=== PATIENT | male | born 1995 | race Caucasian/White ===

== ENCOUNTER 2023-03-30 10:48 | Outpatient (OUT) | payer OTHER, SELFPAY ==
[2023-03-30 11:14] LABS: Basophils Percent Auto 0.8 % (0.2-2.0); Eosinophils Absolute Auto 0.2 10^3/uL (0.0-0.7); Eosinophils Percent Auto 4.6 % (0.9-7.0); Hematocrit 46.2 % (42.0-54.0); Hemoglobin 15.6 g/dL (14.0-18.0); Immature Granulocytes Abs Auto 0.03 10^3/uL (0.00-0.03); Immature Granulocytes Pct Auto 0.6 % (0.0-0.5); Lymphocytes Absolute Auto 0.8 10^3/uL (1.2-3.8); Lymphocytes Percent Auto 15.7 % (20.5-60.0); Mean Corpuscular HGB Conc 33.8 g/dL (29.9-35.2); Mean Corpuscular Hemoglobin 32.3 pg (25.9-34.0); Mean Corpuscular Volume 95.7 fL (80.0-94.0); Mean Platelet Volume 9.2 fL (9.5-13.5); Monocytes Absolute Auto 0.3 10^3/uL (0.3-0.8); Monocytes Percent Auto 5.4 % (1.7-12.0); Neutrophils Absolute Auto 3.8 10^3/uL (1.4-6.5); Neutrophils Percent Auto 72.9 % (43.0-75.0); Platelet Count 229 10^3/uL (150-450); Red Blood Count 4.83 10^6/uL (4.70-6.10); Red Cell Distribution Width 11.8 % (11.0-15.0); White Blood Count 5.2 10^3/uL (4.0-11.0)
[2023-03-30 12:36] LABS: Alanine Aminotransferase 72 U/L (16-63); Albumin Globulin Ratio 1.3; Albumin Level 4.3 g/dL (3.4-5.0); Alkaline Phosphatase 70 U/L (46-116); Anion Gap 12.5; Aspartate Amino Transferase 36 U/L (15-37); BUN Creatinine Ratio 19.3; Bilirubin Total 0.9 mg/dL (0.2-1.0); Carbon Dioxide 29.7 mmol/L (21.0-32.0); Chloride 102 mmol/L (98-107); Cholesterol 229 mg/dL (<=200); Estimated GFR (African America >60 (>=60); Estimated GFR (Non-African Ame >60 (>=60); Globulin 3.3 g/dL; Glucose 108 mg/dL (74-106); HDL Cholesterol 77 mg/dL (40-60); Potassium 4.2 mmol/L (3.5-5.1); Sodium 140 mmol/L (136-145); Total Protein 7.6 g/dL (6.4-8.2); Triglycerides 85 mg/dL (<=150)
[2023-03-31 06:09] LABS: HBsAg Screen Negative (Negative); HCV Antibody Non Reactive (Non Reactive)
[2023-04-01 07:08] LABS: QuantiFERON-TB Gold Plus Negative (Negative)
== END 2023-03-30 10:49 | disposition home or self-care (01) ==
LOC: LAB 10:54
PROVIDERS: PCP Nurse Practitioner Family; Visit Provider Nurse Practitioner
DX: L30.8 Other specified dermatitis (principal); F17.200 Nicotine dependence, unspecified, uncomplicated; Z79.899 Other long term (current) drug therapy
CPT/HCPCS: 36415; 80053; 80061; 85025; 86480; 86803; 87340

== ENCOUNTER 2023-11-07 06:41 | Emergency (ER) | payer OTHER, SELFPAY ==
[2023-11-07 06:44] VITALS: BP 172/100; PULSE 85; TEMP 36.4; O2SAT 99; BMI 29.0
--- OUTSIDE RECORDS SUMMARY | 2023-11-07 06:48 | XMS_ITS ---
Patient Summarization (C-CDA 2.1 CCD) Created on: November 07, 2023 PORTIA MULLINS : 1995 Sex: Male Author Organization Sample organization Care Team Providers Care Slot Operations Director Name Role Phone Brenna Anderson Unavailable Lyn Larsen Unavailable Encounters Encounter Date Encounter Type Care Provider Facility Start: 02-16-2022 End: 02-16-2022 ambulatory Lyn Larsen Other [facility] Other Start: 02-16-2022 Office outpatient vi sit 15 minutes Lyn Larsen [facility] Start: 03-25-2021 End: 03-25-2021 ambulatory Brenna Anderson Other [facility] Other Start: 03-25-2021 Office outpatient vi sit 5 minutes Brenna Anderson [facility] Immunizations Immunization Date Immunization Notes Care Provider Rowena rubin 03-21-2012 influenza, seasonal, injectable, preservative free Brenna Anderson Other [facility] Other Medications Current Medications Medication Drug Class(es) Dates Sig (Normalized) Sig (Original) cetirizine hydrochloride 10 mg oral tablet (1 source) Histamine-1 Receptor Antagonist Start: 2 take 1 tablet by mouth every twelve hours Cetirizine HCl 10 MG 1 tablet Orally Twice a day for 14 days Jan, Active methylPREDNISolone 4 mg oral tablet (1 source) Corticosteroid Start: 2 methylPREDNISolone 4 MG as directed Orally for daily dose take half with breakfast, half with dinner for 6 days Jan, Active Completed/Discontinued Medications Medication Drug Class(es) Dates Sig (Normalized) Sig (Original) sertraline 100 mg oral tablet (1 source) Serotonin Reuptake Inhibitor Start: 08-31-2012 take 1 tablet by mouth every twenty-four hours Zoloft 100 MG 1 tablet Orally Once a day for 30 August, Not-Taking Payers Date Payer Category Payer Policy ID Unknown [id number] Problems Active Problems Problem Classification Problem Date Documented Da te Episodic/Chronic Lymphadenitis (2 sources) Anterior cervical lymphadenopathy; Translations: [Anterior cervical lymphadenopathy] Episodic Malaise and fatigue (2 sources) Fatigue; Translations: [Fatigue] Episodic Mood disorders (4 sources) Mood disorder; Translations: [Mood disorder] Chronic Other circulatory disease (1 source) Elevated blood-pressure reading, without diagnosis of hypertension Episodic Other upper respiratory infections (2 sources) Acute pharyngitis; Translations: [Sore throat (viral) NOS] Episodic Otitis media and related conditions (1 source) Other acute nonsuppurative otitis media, bilateral Episodic Past or Other Problems Problem Classification Problem Date Documented Da te Episodic/Chronic Immunizations and screening for infectious disease (1 source) Encounter for screening for other viral diseases Onset: 03-25-2021 Resolved: 03-25-2021 Episodic Results Test Name Value Interpretation Reference Range [facility] Semen Analysis, [facility] 07-06-2021 Abnormal Sperm Morphology 38 % Normal [facility] Comment on above: Result Comment: WHO Standards used to classify morphology. Performed By: #### S EMCOMP #### [address] Abstinence Period, Semen [facility]HRS [facility] Comment on above: Performed By: #### S EMCOMP #### [facility] [address] [place] [address] [place] Container Type, Semen Cup, Sterile [facility] Comment on above: Performed By: #### S EMCOMP #### [facility] [address] [place] [address] [place] Immature Sperm 3 % [facility] Comment on above: Performed By: #### S EMCOMP #### [place] [address] [place] Immotile Sperm 34 % [facility] Comment on above: Performed By: #### S EMCOMP #### [address] Non-Progression Sperm Motili 24 % Normal [facility] Comment on above: Performed By: #### S EMCOMP #### [address] Normal Sperm Morphology 59 % Normal >/=[address] [facility] Comment on above: Result Comment: WHO Standards used to classify morphology. Performed By: #### S EMCOMP #### [address] Rapid Progression Sperm Motili 32 % Normal [facility] Comment on above: Result Comment: Refe rence: Total of Rapid and Slow Progression is >/= 50% or Rapid Progression only is >/= 25% Decreased motility percentage may be the result of non-viable or non-motile sperm. Performed By: #### S EMCOMP #### [address] Round Cell Concent, Semen 0 10*6/mL Normal <[address] [facility] Comment on above: Result Comment: (Pot entially WBC's) Performed By: #### S EMCOMP #### [address] Semen Collection Method Masturbation Normal [facility] Comment on above: Performed By: #### S EMCOMP #### [address] Semen Liquefaction Liquefied @ 30 min. Normal [facility] Comment on above: Result Comment: PERF ORMED BY: [place] [address] PATHOLOGIST ACID BLOWER AYSHA BREEN M.D. Performed By: #### S EMCOMP #### [address] Semen Viscosity Normal Normal Normal [facility] Comment on above: Performed By: #### S EMCOMP #### [address] Semen Volume 3.0 mL Normal 2.0-5.0 [facility] Comment on above: Performed By: #### S EMCOMP #### [facility] [address] [place] [address] [place] Slow Progression Sperm Motili 10 % Normal [facility] Comment on above: Performed By: #### S EMCOMP #### [facility] [address] [place] [address] [place] Sperm Concentration 15 10*6/mL Low >=20 [facility] Comment on above: Performed By: #### S EMCOMP #### [facility] [address] [place] [id number] [facility] COVID Quick Testingon 2020 Result Negative [facility] Other Social History Date Type Detail Facility Unknown if ever smoked [facility] Other Sex Assigned At Sex Assigned At Bir th [facility] Other Vital Signs Date Time Vital Sign Value Performing Clinician Facility 02-16-2022 10:10-0400 Body height 187.96 cm Lyn Larsen Other [facility] Other 02-16-2022 10:10-0400 Body mass index (BMI) [Ratio] 28.89 kg/m2 Lyn Larsen Other [facility] Other 02-16-2022 10:10-0400 Body temperature 98.3 [degF] Lyn Larsen Other [facility] Other 02-16-2022 10:10-0400 Body weight 102.06 kg Lyn Larsen Other [facility] Other 02-16-2022 10:10-0400 Diastolic blood pressure 86 mm[Hg] Lyn Larsen Other [facility] Other 02-16-2022 10:10-0400 Respiratory rate 18 /min Lyn Larsen Other [facility] Other 02-16-2022 10:10-0400 SaO2% (BldA) [Mass fraction] 99 % Lyn Larsen Other [facility] Other 02-16-2022 10:10-0400 Systolic blood pressure 149 mm[Hg] Lyn Larsen Other [facility] Other Evaluation note 02-16-2022 Note Date & Type Note Facility 02-16-2022 Evaluation note Encounter Date Diagnosis Assessment Notes Jan, Acute effusion of both middle ears (ICD-10 - H65.193) Discussed diagnosis with patient. Advised that his physical exam is consistent with effusion. Will send in rx of Medrol dose pack since patient reports no tolerance to Flonase and Cetirizine to use as directed. Advised patient to finish entire course, take with food and plenty of water. If symptoms do not improve with treatment, follow up with PCP for workup. Immediate evaluation in ER for signs/symptoms as discussed. Patient verbalzies understanding and is agreeable with treatment plan Jan, Elevated blood pressure reading (ICD-10 - R03.0) Advised patient that he needs to follow up with PCP for elevated BP today as well, which can also cause symptoms of dizziness. Immediate evaluation in ER with signs/symptoms as discussed. Patient verbalizes understanding and is agreeable with treatment plan [facility] Other Evaluation note 03-25-2021 Note Date & Type Note Facility 03-25-2021 Evaluation note Encounter Date Diagnosis Assessment Notes Mar, Encounter for screening for other viral diseases (ICD-10 - Z11.59) Mar, Other Additional time spent conducting pre-visit phone call, screening for symptoms, instructions on social distancing, application and removal of PPE, and cleaning of examination room, equipment and supplies was preformed. Patient education given for testing methodology and results. Patient care instructions given in writting by [facility] document. [facility] Other History general Narrative - Reported Note Date & Type Note Facility History general Narrative - Reported Type Medical History ADHD from 1st grade until 10th g [employer] [facility] Other Summary Purpose Family History No Family History Records Found Advance Directives No Advanced Directives Records Found Additional Source Comments (unrecognized sect ion and content) No Status Records Found INFORMATION SOURCE (unrecogn ized section and content) DATE CREATED AUTHOR 07/20/[address] [facility] REASON FOR VISIT (unrecogniz ed section and content) #19 WITH #17 ORESTES ESTRELLA C, [employer] FOR RECORDS PERTAINING TO PATIENTS WHO ARE OR HAVE BEEN ENROLLED IN A CHEMICAL DEPENDENCY/SUBSTANCEABUSE PROGRAM, SOME INFORMATION MAY BE OMITTED. This clinical summary was aggregated from multiple sources. Caution should be exercised in using it in the provision of clinical care. This summary normalizes information from multiple sources, and as a consequence, information in this document may materially change the coding, format and clinical context of patient data. In addition, data may be omitted in some cases. CLINICAL DECISIONS SHOULD BE BASED ON THE PRIMARY CLINICAL RECORDS. [employer] provides no warranty or guarantee of the accuracy or completeness of information in this document.
--- NOTE | 2023-11-07 07:02 | XR_ITS ---
The [address] [address] Patient Name: PORTIA MULLINS MRN: [id number] date: 1995 Sex: M Assigned Patient Location: ER Current Patient Location: ER Accession/Order Number: [id number] Exam Date: 11/07/2023 07:10 Report Date: 11/07/2023 07:24 At the request of: SARA DEAN Procedure: XR hand RT min 3V PROCEDURE: XR hand RT min 3V COMPARISON: None. HISTORY: punch injury to 4th/5th FINDINGS: BONES:No acute fracture or dislocation. Contour deformity of the fifth metacarpal consistent with a remote healed fracture SOFT TISSUES:Negative. No visible soft tissue swelling. EFFUSION:None visible. OTHER: Negative. XR/XR hand RT min 3V IMPRESSION: No acute fracture Electronically authenticated by: HIMANSHU FUCHS Date: 11/07/2023 07:24
--- NOTE | 2023-11-07 07:19 | ED_ITS ---
HPI HPI - General Adult General Chief complaint: Extremity Injury, Upper Stated complaint: RT INDEX FINGER INJURY Time Seen by Provider: 11/07/23 06:59 Source: patient Mode of arrival: walk-in Limitations: no limitations History of Present Illness HPI narrative: 27-year-old male to the emergency department with a chief complaint of laceration to his index finger. Patient reports that he was doing some work on a ariel truck bed and scratched his finger. He reports there was some bleeding. It occurred yesterday afternoon. He reports that has not been bleeding since. His tetanus is up-to-date. He reports he is able to fully flex and extend the digit. Patient reports that 3 days ago he was punching a heavy bag and believes that he broke his right hand as well. He has tenderness over the fourth and fifth metacarpals. Related Data Home Medications ?Medication ?Instructions ?Recorded ?Confirmed bupropion HCl 300 mg 24 hr tablet, mg PO 11/07/23 extended release Previous Rx's ?Medication ?Instructions ?Recorded amoxicillin 875 mg-potassium 1 tab PO Q12H #14 tabs 11/07/23 clavulanate 125 mg tablet Allergies Allergy/AdvReac Type Severity Reaction Status Date / Time No Known Drug Allergies Allergy Verified 11/07/23 06:49 Opioid HPI Opioid Management Most Recent Opioid Data: Last Pain Scale 4 11/07/23 07:02 Review of Systems ROS Status of ROS 10 or more systems reviewed and unremark able except as noted in history and below Exam Narrative Exam Narrative: VITALS: I have reviewed the triage vital signs. GENERAL: Well developed, well appearing adult in no acute distress. NEURO: Alert and oriented. Moves all extremities. Face is symmetric and expressive. EYES: PERRL. No scleral icterus or conjunctival injection. No discharge. HENT: Normocephalic, atraumatic. Hearing is grossly intact. Nares grossly patent and without discharge. Mucous membranes moist. Right hand: There is tenderness and swelling about the fourth and fifth distal metacarpals. There is a superficial laceration about the pad of the index finger without any active bleeding. No gaping, it is already beginning to seal up. Superficial and deep flexor tendon function is intact by isolation testing of each joint. Extensor tendon mechanism is intact. SKIN: Warm and dry. Normal turgor. No rash or lesions appreciated. PSYCH: Mood, affect, and interaction is appropriate to the setting. Constitutional Vital Signs, click to edit/add: Last Vital Signs Temp 97.5 F L 11/07/23 06:44 Pulse 86 11/07/23 07:53 Resp 18 11/07/23 07:53 BP 172/100 H 11/07/23 07:53 Pulse Ox 98 11/07/23 07:53 O2 Del Method Room Air 11/07/23 06:44 Course Vital Signs Vital signs: Vital Signs Temperature 97.5 F L 11/07/23 06:44 Pulse Rate 85 11/07/23 06:44 Respiratory Rate 18 11/07/23 06:44 Blood Pressure 172/100 H 11/07/23 06:44 Pulse Oximetry 99 11/07/23 06:44 Oxygen Delivery Method Room Air 11/07/23 06:44 Temperature 97.5 F L 11/07/23 06:44 Pulse Rate 86 11/07/23 07:53 Respiratory Rate 18 11/07/23 07:53 Blood Pressure 172/100 H 11/07/23 07:53 Pulse Oximetry 98 11/07/23 07:53 Oxygen Delivery Method Room Air 11/07/23 06:44 Medical Decision Making MDM Narrative Medical decision making narrative: 27-year-old male with 2 complaints of the right hand. The first is a boxing injury with pain over the fourth and fifth distal metacarpals that occurred 3 days ago. The second is a delayed presentation for a laceration of the index finger. His tetanus is up-to-date. X-ray to be obtained. Patient agrees with this plan. X-ray without evidence of fracture. Laceration is superficial in nature. Delayed presentation. There is no indication for wound closure at this time. Will place him in a splint to jumpstart the healing/slow him down. He is instructed wear this for 48 hours. Discussed wound care. Prophylactic antibiotics. He will follow-up with his PCP. Return precautions were discussed. All questions were answered. The patient was discharged home. Medical Records Medical records reviewed: Yes I reviewed the patient's medical records Imaging Data X-ray and: Radiologist's impression: ITS Impressions Hand X-Ray 11/07/23 07:02 IMPRESSION: No acute fracture Electronically authenticated by: HIMANSHU FUCHS Date: 11/07/2023 07:24 Discharge Plan Discharge Stand Alone Forms: Portal Instructions Chief Complaint: Extremity Injury, Upper Clinical Impression: Finger laceration, Contusion of hand Patient Disposition: Home, Self-Care Time of Disposition Decision: 07:40 Condition: Good Mode of Transportation: Private Vehicle Prescriptions / Home Meds: New amoxicillin-pot clavulanate 875-125 mg tablet 1 tab PO Q12H Qty: 14 0RF No Action bupropion HCl 300 mg tablet extended release 24 hr PO Print Language: Spanish Instructions: Contusion in Adults (ED), Finger Laceration (ED) Additional Instructions: Keep wound clean and dry. Wear splint for the next 48 hours. Return to the ED with redness, warmth, swelling, discharge from the wound. Take prophylactic antibiotic as prescribed. Call the office of your primary care doctor to arrange for follow-up within the above-stated timeframe. Follow-up with your primary care doctor about this ED visit. You should review your labs, imaging, and diagnoses from this ED visit with your primary care physician. There may be non-emergent findings that need further evaluation. If you were prescribed medications you should discuss possible side-effects and drug interactions with your pharmacist. Call 911 or go to the nearest Emergency Department if you develop any new or worsening symptoms. Referrals: [facility] [Primary Care Provider] - 1 week Discharge Date/Time: 11/07/23 07:55
[2023-11-07 07:53] VITALS: BP 172/100; PULSE 86; O2SAT 98
== END 2023-11-07 07:55 | disposition home or self-care (01) ==
PROVIDERS: Emergency Provider Student in an Organized Health Care Education/Training Program; PCP Nurse Practitioner Family
DX: S61.210A Laceration without foreign body of right index finger without damage to nail, initial encounter (principal); S60.221A Contusion of right hand, initial encounter; W22.8XXA Striking against or struck by other objects, initial encounter
CPT/HCPCS: 73130; 99283

== ENCOUNTER 2024-09-01 10:05 | Outpatient (OUT) | payer OTHER, SELFPAY ==
[2024-09-01 10:22] LABS: Basophils Percent Auto 0.8 % (0.2-2.0); Eosinophils Absolute Auto 0.1 10^3/uL (0.0-0.7); Eosinophils Percent Auto 2.8 % (0.9-7.0); Hematocrit 44.4 % (42.0-54.0); Hemoglobin 15.4 g/dL (14.0-18.0); Immature Granulocytes Abs Auto 0.02 10^3/uL (0.00-0.03); Immature Granulocytes Pct Auto 0.4 % (0.0-0.5); Lymphocytes Absolute Auto 1.3 10^3/uL (1.2-3.8); Mean Corpuscular HGB Conc 34.7 g/dL (29.9-35.2); Mean Corpuscular Volume 92.1 fL (80.0-94.0); Mean Platelet Volume 9.5 fL (9.5-13.5); Monocytes Absolute Auto 0.4 10^3/uL (0.3-0.8); Monocytes Percent Auto 7.9 % (1.7-12.0); Neutrophils Absolute Auto 3.2 10^3/uL (1.4-6.5); Neutrophils Percent Auto 63.1 % (43.0-75.0); Platelet Count 244 10^3/uL (150-450); Red Blood Count 4.82 10^6/uL (4.70-6.10); Red Cell Distribution Width 12.1 % (11.0-15.0); White Blood Count 5.1 10^3/uL (4.0-11.0)
[2024-09-01 10:41] LABS: Chol HDL Ratio 2.7; Cholesterol 188 mg/dL (<=200); HDL Cholesterol 70 mg/dL (40-60); Triglycerides 67 mg/dL (<=150); VLDL CHOLESTEROL 13.4 mg/dL
[2024-09-04 05:07] LABS: QuantiFERON-TB Gold Plus Negative (Negative)
== END 2024-09-01 10:06 | disposition home or self-care (01) ==
PROVIDERS: PCP Nurse Practitioner Family; Visit Provider Nurse Practitioner
DX: L20.89 Other atopic dermatitis (principal); Z79.899 Other long term (current) drug therapy
CPT/HCPCS: 36415; 80061; 85025; 86480